=== PATIENT | male | born 1930 | race Caucasian/White ===

== ENCOUNTER 2017-09-06 08:49 | Outpatient (CLI) | payer MEDICARE, OTHER ==
[2017-09-06] MEDS ORDERED: Iopamidol 370 76% 100 ML VIAL ONE (10:01)
--- NOTE | 2017-09-06 13:10 | CT ---
CT ABDOMEN AND PELVIS PERFORMED WITH INTRAVENOUS CONTRAST ENHANCEMENT. HISTORY: The patient fell last week. Complaining of abdominal and pelvic pain. FINDINGS: ABDOMEN: The lung bases show some subsegmental atelectatic change. No evidence of pneumothorax. No acute rib fractures are identified. The liver shows suggestion of fatty change. It is within normal limits in size. The spleen is nickolas l in appearance. The pancreas is unremarkable. The gallbladder region is also unremarkable. The right and left adrenal glands are normal appearance. Bilateral renal cysts are present. The lar gest of these is on the right side. It measures 10 cm. The largest cyst on the left measures 3.5 cm . No obstruction. No significant periaortic or mesenteric adenopathy. There is moderate vascular c alcification. There is moderate plaque formation at the take-off of the superior mesenteric artery. The appendix is retrocecal in location and normal in size. PELVIS: The prostate is slightly enlarged. There is no significant pelvic lymphadenopathy or mass. The pelvic ring appears intact. There are no signs of any fracture. There are arthritic changes of the spine and scoliotic change, convexed to the right. IMPRESSION: 1. No evidence of acute injury of the abdomen or pelvis. 2. Bilateral renal cysts with a large, 10 cm right renal cyst. POS: [facility]
== END 2017-09-06 08:50 | disposition home or self-care (01) ==
LOC: CT 08:49
PROVIDERS: ATTEND Family Medicine
DX: R10.2 Pelvic and perineal pain (principal); N28.1 Cyst of kidney, acquired
CPT/HCPCS: 74177